=== PATIENT | male | born 1960 | race Caucasian/White ===

== ENCOUNTER 2017-12-28 12:18 | Emergency (ER) | payer OTHER ==
[~2017-12-28] VITALS: Ht 195.6 cm; Wt 140.0 kg
[2017-12-28 12:20] VITALS: BP 125/78; PULSE 96; RESP 16; TEMP 98.9; O2SAT 99
[2017-12-28] MEDS ORDERED: TRAZ100T10 PO (13:40)
[2017-12-28] MEDS ORDERED: DILT30TA PO (13:40)
[2017-12-28] MEDS ORDERED: CITA20TA4 PO (13:40)
[2017-12-28] MEDS ORDERED: MULT-65 PO (13:40)
[2017-12-28] MEDS ORDERED: VITA1000 PO (13:40)
[2017-12-28] MEDS ORDERED: LURA80 PO (13:40)
[2017-12-28 15:33] LABS: AUTOMATED NEUTROPHIL # 2.6 TH/MM3 (1.8-7.7); BASOPHIL # 0.1 TH/MM3 (0-0.2); BASOPHIL % 1.9 % (0.0-2.0); EOSINOPHIL # 0.2 TH/MM3 (0-0.4); EOSINOPHIL % 3.6 % (0.0-4.0); HEMATOCRIT 40.7 % (39.0-51.0); HEMOGLOBIN 13.8 GM/DL (13.0-17.0); LYMPH % 36.3 % (9.0-44.0); LYMPHOCYTE # 1.9 TH/MM3 (1.0-4.8); MEAN CELL VOLUME 92.4 FL (80.0-100.0); MEAN CORPUSCULAR HEMOGLOBIN 31.3 PG (27.0-34.0); MEAN CORPUSCULAR HGB CONC 33.9 % (32.0-36.0); MEAN PLATELET VOLUME 7.2 FL (7.0-11.0); MONOCYTE # 0.5 TH/MM3 (0-0.9); NEUT % 49.2 % (16.0-70.0); PLATELET COUNT 262 TH/MM3 (150-450); RED BLOOD COUNT 4.41 MIL/MM3 (4.50-5.90); WHITE BLOOD COUNT 5.2 TH/MM3 (4.0-11.0)
[2017-12-28 15:56] LABS: BICARBONATE 29.5 MEQ/L (21.0-32.0); BLOOD UREA NITROGEN 16 MG/DL (7-18); CALCIUM 8.5 MG/DL (8.5-10.1); CHLORIDE 108 MEQ/L (98-107); CREATININE 1.47 MG/DL (0.60-1.30); GLOMERULAR FILTRATION RATE 49 ML/MIN (>89); GLUCOSE,RANDOM 108 MG/DL (74-106); SODIUM (NA) 143 MEQ/L (136-145)
--- NOTE | 2017-12-28 16:21 | PD ---
HPI Chief Complaint: Suicide Ideation/Attempt Time Seen by Provider: 16:20 Travel History International Travel<30 days: No Contact w/Intl Traveler<30days: No Traveled to known affect area: No History of Present Illness HPI 57-year-old male presents emergency department for psychiatric evaluation. Patient states he has been off of his schizophrenic medication for at least 2 months. During that time he did have a short hospitalization and an inpatient psych facility. This was out of town. He was medicated during that time but then once he left he was not provided any prescriptions.. He is having auditory hallucinations. He states that he is having suicidal thoughts as well. He denies any illicit drug use. Denies any acute medical needs at this time. PFSH Past Medical History Schizophrenia: Yes Social History Tobacco Use: No Substance Use: No Allergies-Medications (Allergen,Severity, Reaction): Coded Allergies: lactose (Verified Allergy, Unknown, 12/28/17) Reported Meds & Prescriptions Reported Meds & Active Scripts Active Reported Vitamin D-1000 (Cholecalciferol) 1,000 Unit Tab 1,000 Units PO DAILY Multi-Vitamin Daily (Multiple Vitamin) 1 Tab Tab 1 Tab PO DAILY Diltiazem (Diltiazem HCl) 30 Mg Tab 30 Mg PO QID Citalopram (Citalopram Hydrobromide) 20 Mg Tab 20 Mg PO DAILY Trazodone (Trazodone HCl) 100 Mg Tablet 100 Mg PO HS Latuda (Lurasidone) 80 Mg Tab 80 Mg PO DAILY Review of Systems Except as stated in HPI: all other systems reviewed are Neg Physical Exam Narrative GENERAL: Well-nourished male patient, lying in bed in no acute distress. SKIN: Focused skin assessment warm/dry. HEAD: Atraumatic. Normocephalic. EYES: Pupils equal and round. No scleral icterus. No injection or drainage. ENT: No nasal bleeding or discharge. Mucous membranes pink and moist. NECK: Trachea midline. No JVD. CARDIOVASCULAR: Regular rate and rhythm. No murmur appreciated. RESPIRATORY: No accessory muscle use. Clear to auscultation. Breath sounds equal bilaterally. GASTROINTESTINAL: Abdomen soft, non-tender, nondistended. Hepatic and splenic margins not palpable. MUSCULOSKELETAL: No obvious deformities. No clubbing. No cyanosis. No edema. NEUROLOGICAL: Awake and alert. No obvious cranial nerve deficits. Motor grossly within normal limits. Normal speech. PSYCHIATRIC: Bizarre affect Data Data Last Documented VS Vital Signs Date Time Temp Pulse Resp B/P (MAP) Pulse Ox O2 Delivery O2 Flow Rate FiO2 12/28/17 18:08 74 18 116/62 (80) 99 Room Air 12/28/17 12:20 98.9 Orders Orders Complete Blood Count With Diff (12/28/17 12:30) Thyroid Stimulating Hormone (12/28/17 12:30) Basic Metabolic Panel (Bmp) (12/28/17 12:30) Psych Screen (12/28/17 12:30) Drug Screen, Random Urine (12/28/17 12:30) Alcohol (Ethanol) (12/28/17 12:30) Diet Regular Basic (12/28/17 Dinner) Labs Laboratory Tests Test 12/28/17 15:15 White Blood Count 5.2 TH/MM3 Red Blood Count 4.41 MIL/MM3 Hemoglobin 13.8 GM/DL Hematocrit 40.7 % Mean Corpuscular Volume 92.4 FL Mean Corpuscular Hemoglobin 31.3 PG Mean Corpuscular Hemoglobin Concent 33.9 % Red Cell Distribution Width 14.0 % Platelet Count 262 TH/MM3 Mean Platelet Volume 7.2 FL Neutrophils (%) (Auto) 49.2 % Lymphocytes (%) (Auto) 36.3 % Monocytes (%) (Auto) 9.0 % Eosinophils (%) (Auto) 3.6 % Basophils (%) (Auto) 1.9 % Neutrophils # (Auto) 2.6 TH/MM3 Lymphocytes # (Auto) 1.9 TH/MM3 Monocytes # (Auto) 0.5 TH/MM3 Eosinophils # (Auto) 0.2 TH/MM3 Basophils # (Auto) 0.1 TH/MM3 CBC Comment DIFF FINAL Differential Comment Blood Urea Nitrogen 16 MG/DL Creatinine 1.47 MG/DL Random Glucose 108 MG/DL Calcium Level 8.5 MG/DL Sodium Level 143 MEQ/L Potassium Level 4.2 MEQ/L Chloride Level 108 MEQ/L Carbon Dioxide Level 29.5 MEQ/L Anion Gap 6 MEQ/L Estimat Glomerular Filtration Rate 49 ML/MIN Thyroid Stimulating Hormone 3rd Gen 0.576 uIU/ML Ethyl Alcohol Level LESS THAN 3 MG/DL MDM Medical Decision Making Medical Screen Exam Complete: Yes Emergency Medical Condition: Yes Medical Record Reviewed: Yes Differential Diagnosis Mood disorder versus personality disorder versus adjustment reaction disorder Narrative Course 57-year-old male presents emergency department for psychiatric evaluation. Patient appears without distress. His vital signs are stable. He reports having auditory hallucinations and suicidal ideations. Laboratory Tests Test 12/28/17 15:15 White Blood Count 5.2 TH/MM3 Red Blood Count 4.41 MIL/MM3 Hemoglobin 13.8 GM/DL Hematocrit 40.7 % Mean Corpuscular Volume 92.4 FL Mean Corpuscular Hemoglobin 31.3 PG Mean Corpuscular Hemoglobin Concent 33.9 % Red Cell Distribution Width 14.0 % Platelet Count 262 TH/MM3 Mean Platelet Volume 7.2 FL Neutrophils (%) (Auto) 49.2 % Lymphocytes (%) (Auto) 36.3 % Monocytes (%) (Auto) 9.0 % Eosinophils (%) (Auto) 3.6 % Basophils (%) (Auto) 1.9 % Neutrophils # (Auto) 2.6 TH/MM3 Lymphocytes # (Auto) 1.9 TH/MM3 Monocytes # (Auto) 0.5 TH/MM3 Eosinophils # (Auto) 0.2 TH/MM3 Basophils # (Auto) 0.1 TH/MM3 CBC Comment DIFF FINAL Differential Comment Blood Urea Nitrogen 16 MG/DL Creatinine 1.47 MG/DL Random Glucose 108 MG/DL Calcium Level 8.5 MG/DL Sodium Level 143 MEQ/L Potassium Level 4.2 MEQ/L Chloride Level 108 MEQ/L Carbon Dioxide Level 29.5 MEQ/L Anion Gap 6 MEQ/L Estimat Glomerular Filtration Rate 49 ML/MIN Thyroid Stimulating Hormone 3rd Gen 0.576 uIU/ML Ethyl Alcohol Level LESS THAN 3 MG/DL Lab work is without acute concern. Patient is medically cleared to undergo psychiatric screening for further evaluation and disposition. Diagnosis Primary Impression: Schizophrenia Condition: Stable MunizMyra herbert DESMOND December 28, 2017 16:21
[2017-12-28 18:08] VITALS: BP 116/62; PULSE 74; RESP 18; O2SAT 99
[2017-12-29 01:00] VITALS: BP 129/77; PULSE 76; RESP 18; TEMP 97.7; O2SAT 96
[2017-12-29 06:52] VITALS: BP 138/72; PULSE 79; RESP 20; TEMP 97.2; O2SAT 99
--- NOTE | 2017-12-29 08:10 | PD ---
Physical Exam Time Seen by Provider: 08:[address] Galicia has evaluated the patient and cleared the patient for discharge. The patient has a follow-up appointment with her psychiatrist tomorrow. Data Data Last Documented VS Vital Signs Date Time Temp Pulse Resp B/P (MAP) Pulse Ox O2 Delivery O2 Flow Rate FiO2 12/29/17 06:52 97.2 79 20 138/72 (94) 99 Room Air Orders Orders Complete Blood Count With Diff (12/28/17 12:30) Thyroid Stimulating Hormone (12/28/17 12:30) Basic Metabolic Panel (Bmp) (12/28/17 12:30) Psych Screen (12/28/17 12:30) Drug Screen, Random Urine (12/28/17 12:30) Alcohol (Ethanol) (12/28/17 12:30) Diet Regular Basic (12/28/17 Dinner) Diet Regular Basic (12/29/17 Breakfast) Labs Laboratory Tests Test 12/28/17 15:15 12/29/17 00:43 White Blood Count 5.2 TH/MM3 Red Blood Count 4.41 MIL/MM3 Hemoglobin 13.8 GM/DL Hematocrit 40.7 % Mean Corpuscular Volume 92.4 FL Mean Corpuscular Hemoglobin 31.3 PG Mean Corpuscular Hemoglobin Concent 33.9 % Red Cell Distribution Width 14.0 % Platelet Count 262 TH/MM3 Mean Platelet Volume 7.2 FL Neutrophils (%) (Auto) 49.2 % Lymphocytes (%) (Auto) 36.3 % Monocytes (%) (Auto) 9.0 % Eosinophils (%) (Auto) 3.6 % Basophils (%) (Auto) 1.9 % Neutrophils # (Auto) 2.6 TH/MM3 Lymphocytes # (Auto) 1.9 TH/MM3 Monocytes # (Auto) 0.5 TH/MM3 Eosinophils # (Auto) 0.2 TH/MM3 Basophils # (Auto) 0.1 TH/MM3 CBC Comment DIFF FINAL Differential Comment Blood Urea Nitrogen 16 MG/DL Creatinine 1.47 MG/DL Random Glucose 108 MG/DL Calcium Level 8.5 MG/DL Sodium Level 143 MEQ/L Potassium Level 4.2 MEQ/L Chloride Level 108 MEQ/L Carbon Dioxide Level 29.5 MEQ/L Anion Gap 6 MEQ/L Estimat Glomerular Filtration Rate 49 ML/MIN Thyroid Stimulating Hormone 3rd Gen 0.576 uIU/ML Ethyl Alcohol Level LESS THAN 3 MG/DL Urine Opiates Screen NEG Urine Barbiturates Screen NEG Urine Amphetamines Screen NEG Urine Benzodiazepines Screen NEG Urine Cocaine Screen NEG Urine Cannabinoids Screen NEG MDM Supervised Visit with [facility]MA: No Narrative Course Dr. Galicia has evaluated the patient and cleared the patient for discharge. The patient has a follow-up appointment with her psychiatrist tomorrow. Patient contracts safety. Denies suicidal or homicidal ideations. Patient will be provided community resource packet to [facility] for follow-up. Has friends and family for support. Patient was medically cleared by alternate provider prior to psych screening. Patient has been evaluated by psychiatry and and is now cleared for discharge. Diagnosis Primary Impression: Schizophrenia Additional Impression: Adjustment disorder Referrals: [facility] (Out patient) [facility] Primary Care Physician Psychiatrist Gerald [facility] Patient Instructions: General Instructions, Mood Disorders (ED), Schizophrenia (ED) Additional Instruction: Contract safety to your self and others Follow-up with psychiatry Follow-up with primary care provider Follow-up with Anthony Wang Return to the emergency department immediately with worsening of symptoms Med/Other Pt SpecificInfo: No Change to Meds, No Meds Exist/No RX given Disposition: 01 DISCHARGE HOME Condition: Stable Amara Mcadams December 29, 2017 08:10
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
== END 2017-12-29 09:18 | disposition home or self-care (01) ==
LOC: NEPJ 12:18
DX: F20.9 Schizophrenia, unspecified (principal); F43.20 Adjustment disorder, unspecified; F43.10 Post-traumatic stress disorder, unspecified; Z79.899 Other long term (current) drug therapy; Z59.0 Homelessness
CPT/HCPCS: 80048; 80307; 84443; 85025; 99284

== ENCOUNTER 2018-01-31 02:58 | Emergency (ER) | payer OTHER ==
[~2018-01-31] VITALS: Ht 180.3 cm; Wt 104.5 kg
[~2018-01-31 02:58] MED LIST: CITA20TA4 PO; DILT30TA PO; LURA80 PO; MULT-65 PO; TRAZ100T10 PO; VITA1000 PO
--- NOTE | 2018-01-31 03:59 | PD ---
HPI . abdominal pain Chief Complaint: Abdominal Pain Time Seen by Provider: 03:08 Travel History International Travel<30 days: No Contact w/Intl Traveler<30days: No Traveled to known affect area: No History of Present Illness HPI pt is having abdo pain , pt was shopping at [employer] after paying for his groceries called 911 saying he is having severe abdo pain , no vomit no diarrhea no trauma PFSH Past Medical History Schizophrenia: Yes Social History Alcohol Use: No Tobacco Use: No Substance Use: No Allergies-Medications (Allergen,Severity, Reaction): Coded Allergies: Penicillins (Verified Allergy, Unknown, 01/31/18) lactose (Verified Allergy, Unknown, 01/31/18) lithium (Verified Allergy, Unknown, 01/31/18) Reported Meds & Prescriptions Reported Meds & Active Scripts Active Pepcid (Famotidine) 20 Mg Tab 20 Mg PO BID Reported Vitamin D-1000 (Cholecalciferol) 1,000 Unit Tab 1,000 Units PO DAILY Multi-Vitamin Daily (Multiple Vitamin) 1 Tab Tab 1 Tab PO DAILY Diltiazem (Diltiazem HCl) 30 Mg Tab 30 Mg PO QID Citalopram (Citalopram Hydrobromide) 20 Mg Tab 20 Mg PO DAILY Trazodone (Trazodone HCl) 100 Mg Tablet 100 Mg PO HS Latuda (Lurasidone) 80 Mg Tab 80 Mg PO DAILY Review of Systems Except as stated in HPI: all other systems reviewed are Neg Gastrointestinal: Positive: Abdominal Pain Physical Exam Narrative GENERAL:obese abdomen no acute distress SKIN: Warm and dry. HEAD: Atraumatic. Normocephalic. EYES: Pupils equal and round. No scleral icterus. No injection or drainage. ENT: No nasal bleeding or discharge. Mucous membranes pink and moist. NECK: Trachea midline. No JVD. CARDIOVASCULAR: Regular rate and rhythm. RESPIRATORY: No accessory muscle use. Clear to auscultation. Breath sounds equal bilaterally. GASTROINTESTINAL: Abdomen pain epigastric MUSCULOSKELETAL: Extremities without clubbing, cyanosis, or edema. No obvious deformities. NEUROLOGICAL: Awake and alert. No obvious cranial nerve deficits. Motor grossly within normal limits. Five out of 5 muscle strength in the arms and legs. Normal speech. PSYCHIATRIC: Appropriate mood and affect; insight and judgment normal. Data Data Orders Orders Abdomen, Flat & Upright (01/31/18 ) Ed Discharge Order (01/31/18 06:26) MDM Medical Decision Making Medical Screen Exam Complete: Yes Emergency Medical Condition: Yes Diagnosis Primary Impression: Abdominal pain Qualified Codes: R10.9 - Unspecified abdominal pain Patient Instructions: Gastritis (ED), General Instructions Scripts Famotidine (Pepcid) 20 Mg Tab 20 MG PO BID, #20 TAB 0 Refills Prov: Chas Holt MD 01/31/18 Disposition: 01 DISCHARGE HOME Condition: Good Chas Holt MD Jan 31, 2018 03:59
--- NOTE | 2018-01-31 04:19 | RADRPT ---
EXAM DATE: 01/31/2018 4:09 AM EDT AGE/SEX: 57 years / Male INDICATIONS: Upper abdominal pain. CLINICAL DATA: This is the patient's initial encounter. Patient reports that signs and symptoms have been present for 1 day and indicates a pain score of 6/10. MEDICAL/SURGICAL HISTORY: None. None. COMPARISON: No prior exams available for comparison. FINDINGS: 2 AP supine views of the abdomen were obtained as well as an erect view and demonstrate gas and stool noted segmentally in the colon. There is no free air or mass effect. There are no abnormal calcifica tions. The lung bases are clear. The bony structures remain intact. CONCLUSION: Unremarkable bowel gas pattern with no evidence of free air. Electronically signed by: Howie Carbajal MD 01/31/2018 4:18 AM EDT
[2018-01-31] MEDS ORDERED: FAMO1TAB37 PO (06:20)
== END 2018-01-31 06:32 | disposition home or self-care (01) ==
LOC: NEPE 02:58
DX: R10.9 Unspecified abdominal pain (principal); F20.9 Schizophrenia, unspecified; Z88.0 Allergy status to penicillin; Z88.8 Allergy status to other drugs, medicaments and biological substances; Z79.899 Other long term (current) drug therapy
CPT/HCPCS: 74019; 99283

== ENCOUNTER 2018-02-04 10:06 | Emergency (ER) | payer OTHER ==
[~2018-02-04] VITALS: Ht 200.7 cm; Wt 140.0 kg
[~2018-02-04 10:06] MED LIST changes: +FAMO1TAB37 PO
[2018-02-04 10:22] VITALS: BP 135/77; PULSE 84; RESP 15; TEMP 98.2; O2SAT 98
--- NOTE | 2018-02-04 11:57 | PD ---
HPI Chief Complaint: Suicide Ideation/Attempt Time Seen by Provider: 10:46 Travel History International Travel<30 days: No Contact w/Intl Traveler<30days: No Traveled to known affect area: No History of Present Illness HPI 57 YO M with PMH of schizophrenia, PTSD presents to the ED for voluntary psychiatric evaluation. Patient states she has been feeling suicidal for the last few days. He thought he might take some pills. Endorses previous psychiatric hospitalization secondary to previous suicide attempt. He has some chronic complaints of GERD and low back pain, no acute exacerbations reported now. Denies any other somatic complaints. PFSH Past Medical History Cardiovascular Problems: Yes Respiratory: Yes Schizophrenia: Yes ?: Not Social History Alcohol Use: No Tobacco Use: No Substance Use: No Allergies-Medications (Allergen,Severity, Reaction): Coded Allergies: Penicillins (Verified Allergy, Unknown, 01/31/18) lactose (Verified Allergy, Unknown, 01/31/18) lithium (Verified Allergy, Unknown, 01/31/18) Reported Meds & Prescriptions Reported Meds & Active Scripts Active Pepcid (Famotidine) 20 Mg Tab 20 Mg PO BID Reported Vitamin D-1000 (Cholecalciferol) 1,000 Unit Tab 1,000 Units PO DAILY Multi-Vitamin Daily (Multiple Vitamin) 1 Tab Tab 1 Tab PO DAILY Diltiazem (Diltiazem HCl) 30 Mg Tab 30 Mg PO QID Citalopram (Citalopram Hydrobromide) 20 Mg Tab 20 Mg PO DAILY Trazodone (Trazodone HCl) 100 Mg Tablet 100 Mg PO HS Latuda (Lurasidone) 80 Mg Tab 80 Mg PO DAILY Review of Systems Except as stated in HPI: all other systems reviewed are Neg Physical Exam Narrative GENERAL: Well-nourished, well-developed -[place] male in no acute distress. PSYCH: Calm, cooperative. SKIN: Focused skin assessment warm/dry. HEAD: Normocephalic. EYES: No scleral icterus. No injection or drainage. NECK: Supple, trachea midline. No JVD or lymphadenopathy. CARDIOVASCULAR: Regular rate and rhythm without murmurs, gallops, or rubs. RESPIRATORY: Breath sounds clear and equal bilaterally. No accessory muscle use. GASTROINTESTINAL: Abdomen soft, non-tender, nondistended. MUSCULOSKELETAL: No cyanosis, or edema. BACK: Nontender without obvious deformity. No CVA tenderness. Data Data Last Documented VS Vital Signs Date Time Temp Pulse Resp B/P (MAP) Pulse Ox O2 Delivery O2 Flow Rate FiO2 02/04/18 10:22 98.2 84 15 135/77 (96) 98 Orders Orders Diet Regular Basic (02/04/18 Lunch) MDM Medical Decision Making Medical Screen Exam Complete: Yes Emergency Medical Condition: Yes Differential Diagnosis Adjustment disorder versus anxiety versus bipolar versus depression versus dementia versus electrolyte disorder versus malingering versus mood disorder versus ODD versus psychosis versus PTSD versus schizophrenia versus schizoaffective disorder versus substance-induced mood disorder versus other Narrative Course 37-year-old male presents the ED requesting voluntary psychiatric evaluation. He has a history of PTSD and schizophrenia. He states that he thought he might take some pills. Chronic complaints of back pain and GERD, no acute somatic complaints reported. Vitals reviewed. Patient was evaluated in the ED a few days ago, no concerning lab abnormalities noted. He is medically clear for psychiatric evaluation. Diagnosis Primary Impression: Medical clearance for psychiatric admission Mary Correa Feb 04, 2018 11:57
[2018-02-04 14:34] VITALS: BP 128/73; PULSE 79; RESP 16; TEMP 98.6; O2SAT 99
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
== END 2018-02-04 17:29 | disposition left against medical advice (07) ==
LOC: NEPJ 10:06
DX: F43.20 Adjustment disorder, unspecified (principal); Z76.5 Malingerer [conscious simulation]; F20.0 Paranoid schizophrenia; F43.10 Post-traumatic stress disorder, unspecified; Z88.0 Allergy status to penicillin; Z88.8 Allergy status to other drugs, medicaments and biological substances; Z79.899 Other long term (current) drug therapy
CPT/HCPCS: 99283

== ENCOUNTER 2018-05-29 17:24 | Inpatient (IN) ==
[2018-05-29 19:34] LABS: Baso % (Auto) 0.5 % (0.0-2.0); Eos % (Auto) 0.9 % (0.0-4.0); Hematocrit 38.2 % (39.0-51.0); Hemoglobin 13.1 gm/dL (13.0-17.0); Lymph # (Auto) 1.4 th/mm3 (1.0-4.8); Lymph % (Auto) 26.2 % (9.0-44.0); Mean Corpuscular HGB Conc 34.4 % (32.0-36.0); Mean Corpuscular Hemoglobin 31.1 pg (27.0-34.0); Mean Corpuscular Volume 90.6 fL (80.0-100.0); Mean Platelet Volume 7.7 fL (7.0-11.0); Mono # (Auto) 0.4 th/mm3 (0.0-0.9); Neut # (Auto) 3.4 th/mm3 (1.8-7.7); Neut % (Auto) 64.4 % (16.0-70.0); Platelet Count 323 th/mm3 (150-450); Red Blood Count 4.21 mil/mm3 (4.50-5.90); Red Cell Distribution Width 14.5 % (11.6-17.2); White Blood Count 5.2 th/mm3 (4.0-11.0)
[2018-05-29 20:00] LABS: Albumin 3.7 g/dL (3.4-5.0); Anion Gap 7 meq/L (5-15); Aspartate Aminotransferase 32 U/L (15-37); Blood Urea Nitrogen 16 mg/dL (7-18); Calcium 8.7 mg/dL (8.5-10.1); Carbon Dioxide 25.2 meq/L (21.0-32.0); Chloride 107 meq/L (98-107); Glomerular Filtration Rate 58 mL/min (>89); Glucose,Random 86 mg/dL (74-106); Magnesium 2.3 mg/dL (1.5-2.5); Potassium 3.9 meq/L (3.5-5.1); Sodium 139 meq/L (136-145)
[2018-05-29 20:02] LABS: Alanine Aminotransferase 41 U/L (12-78)
[2018-05-29 20:11] LABS: Alkaline Phosphatase 88 U/L (45-117); Total Protein 7.7 g/dL (6.4-8.2)
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
[2018-05-30 04:34] LABS: Amphetamine Screen,Urine Neg (Neg); Barbiturate Screen,Urine Neg (Neg); Cannabinoid Screen,Urine Neg (Neg); Cocaine Screen,Urine Pos (Neg); Opiate Screen,Urine Neg (Neg)
[2018-05-30] MEDS ORDERED: Aluminum/Magnesium/Simethacone Susp 30 ML UDC PO PRN (08:42)
[2018-05-30] MEDS ORDERED: Bisacodyl 10 MG Supp RECTAL PRN (08:42)
[2018-05-30] MEDS: Senna/Docusate Sodium 8.6/50 MG Tablet PO SCH ×2 (09:49→21:36)
--- NOTE | 2018-05-30 15:27 | P.HPPSY ---
Provisional Diagnosis Admission Date: May 30, 2018 09:38 [place] I.: Adjustment disorder with disturbance of conduct, PTSD, MDD Competence Certification of Person's Competence To Provide Express and Informed Consent I have personally examined Baltazar Oliveira, a person being served at [facility] on, May 30, 2018 1518. Express and informed consent means consent voluntarily given in writing, by a competent person, after sufficient explanation and disclosure of the subject matter involved to enable the person to make a knowing and willful decision without any element of force, fraud, deceit, duress, or other form of constraint or coercion. This person is 18 years of age or older, is not now known to be incompetent to consent to treatment with a guardian advocate, and does not have a health care surrogate or proxy currently making medical treatment decisions. I have found this person to be one of the following: [] Competent to provide express and informed consent, as defined above, for voluntary admission to this facility and is competent to provide express and informed consent for treatment. He/she has the consistent capacity to make well reasoned, willful, and knowing decisions concerning his or her medical or mental health treatment. The person fully and consistently understands the purpose of the admission for examination/placement and is fully capable of personally exercising all rights assured under [place] [] Incompetent to provide express and informed consent to voluntary admission, and this is incompetent to provide express and informed consent to treatment. The person must be transferred to involuntary status and a petition for a guardian advocate filed with the Circuit Court. [x] Refusing to provide express and informed consent to voluntary admission but is competent to provide express and informed consent for treatment. The person must be discharged or transferred to involuntary status. Form shall be completed within 24 hours of a person's arrival at the receiving facility and filed in the clinical record of each person: 1. Admitted on a voluntary basis 2. Permitted to provide express and informed consent to his/her own treatment 3. Allowed to transfer from involuntary to voluntary status 4. Prior to permitting a person to consent to his or her own treatment after having been previously found incompetent to consent to treatment. History of Present Illness Capacity: Has capacity History of Present Illness: The patient is a 57-year-old -Citizen Of [place] man, domiciled in [facility] [place] [facility] [place], , single, unemployed, , 100% service-connected, with a psychiatric history of PTSD, major depressive disorder, previous psychiatric hospitalizations, he is known by the department, he has several ER visits to [place], documentation review, psychiatric outpatient care in the [place], he is on Latuda 80 mg, trazodone 100 mg, Celexa 20 mg, Valium 10 mg at bedtime medical history hypertension, TBI, presents emergency department under Huang act by PD. Patient states that he initially had tried to call the ambulance to take him to the [place]. He states that he was feeling increasingly depressed and anxious regarding his roommates taking advantage of him those are people that were just released from halfway. He also says that he does not feel that he is getting the need that he deserves, because I am the black person. Patient reports that he does not want to continue living in [place], he wants to go back to [place]. He reports that he has been feeling hopeless, helpless, worthless, difficulty sleeping at night, very concerned and with anxiety Attacks per he states that he has contemplated suicide but has no current plan. He also states that he has been suffering from chronic right knee pain. He has been seen at the [place] multiple times and has had an x-ray as well as an ultrasound of his right leg. He is currently taking ibuprofen for his pain. According to the Huang act the patient had refused transport by PD initially before he was placed under a Huang act. The patient stated that he only wanted to come by ambulance. When the patient was here in the ER he was seen by the psych nurse practitioner who initiated restraints and medicated him with Geodon 10 mg and Ativan 1 mg the patient here this evening denies any active plan on self-harm. No homicidal ideation. The patient is fully oriented x3, no attention deficit, no fluctuation of consciousness. On the ER the patient has been very disruptive, oddly related, intrusive, asking the same questions over and over. Patient has a very kind of concrete thinking and at times made the questions over and over. He also has showed he does not respond very well to white female become quite paranoid. PPHx: psychiatric history of PTSD, major depressive disorder, previous psychiatric hospitalizations, he is known by the department, he has several ER visits to [place], documentation review, psychiatric outpatient care in the [place], he is on Latuda 80 mg, trazodone 100 mg, Celexa 20 mg, Valium 10 mg at bedtime PMHx: history hypertension, TBI Substance Hx: He denies alcohol and illegal Social Hx: Patient was born and raised in [place], he lives in [facility] in [facility], his highest level of education is a bachelor degree - Inpatient Certification I certify that the inpatient services were ordered in accordance with Medicare regulations governing the order. This includes certification that hospital inpatient services are reasonable and necessary and in the case of services not specified as inpatient-only under 42 CFR 419.22(n), that they are appropriately provided as inpatient services in accordance to with the 2-midnight benchmark under 43 CFR 412.3(e) I certify that inpatient psychiatric hospital services are medically necessary. Evaluation and treatment and/or diagnostic testing are expected to improve the patient's condition. The patient needs on a daily basis, active treatment furnished directly by or requiring the supervision of inpatient psychiatric facility personnel. Estimated Total Length of Stay (Days): 7 Plans for Post Hospital Care: Home [facility] - History History Provided By: Patient - Medical History Medical History: Medical History (Last Reviewed 05/29/18 @ 20:12 by ADRIAN Myers) Diabetes Right bundle branch block TBI (traumatic brain injury) - Surgical History Surgical History: Surgical History (Last Reviewed 05/29/18 @ 20:12 by ADRIAN Myers) History of surgery of head - Tobacco History Second Hand Smoke Exposure: Yes Tobacco Use In Past 30 Days: Yes (2PPD) Smoking Status: Current every day smoker Tobacco Type: Cigarettes - Alcohol History How Often Do You Have a Drink Containing Alcohol: 4 or more times a week - Substance Use History Substance History: No History of Abuse - Travel History Recent Travel in the USA Within the Last 8 Weeks: No Recent Travel Out of the Country Within the Last 8 Weeks: No - Immunization History Tetanus Immunization: Unsure Medications and Allergies Active Medications: Active Medications Al Hydrox/Mg Hydrox/Simethicone (Mag-Al Plus Susp Liq) 30 ml PO Q6H PRN PRN Reason: DYSPEPSIA Al Hydroxide/Mg Hydroxide (Milk Of Magnesia Liq) 30 ml PO Q12H PRN PRN Reason: Mild Constipation Bisacodyl (Dulcolax Supp) 10 mg RECTAL DAILY PRN PRN Reason: SEVERE CONSITIPATION Lactulose (Lactulose Liq) 30 ml PO DAILY PRN PRN Reason: SEVERE CONSITIPATION Lurasidone HCl (Latuda) 40 mg PO DAILY [facility] Last Admin: 05/30/18 09:49 Dose: 40 mg Prazosin HCl (Minipress) 2 mg PO HS [facility] Senna/Docusate Sodium (Sandy-Colace) 1 tab PO BID [facility] Last Admin: 05/30/18 09:49 Dose: 1 tab Sennosides (Senokot) 17.2 mg PO Q12H PRN PRN Reason: Moderate Constipation Trazodone HCl (Desyrel) 100 mg PO HS [facility] Allergies Allergy/AdvReac Type Severity Reaction Status Date / Time amitriptyline Allergy Unknown Hallucinati Verified 05/29/18 17:41 ons haloperidol [From Haldol] Allergy Unknown Dry Mucus Verified 05/29/18 17:41 Membranes lactose Allergy Unknown Diarrhea Verified 05/29/18 17:41 lithium Allergy Unknown Diarrhea Verified 05/29/18 17:41 Penicillins Allergy Unknown Swelling Verified 05/29/18 17:41 of the Eye quetiapine [From Seroquel] Allergy Unknown Hallucinati Verified 05/29/18 17:41 ons Home Medications Medication Instructions Recorded Confirmed Type hydroxyzine pamoate [Vistaril] 25 mg PO HS PRN 05/29/18 05/29/18 History prazosin 2 mg PO HS 05/29/18 05/29/18 History trazodone 100 mg PO HS 05/29/18 05/29/18 History Results - Labs CBC & Chem 7: 05/29/18 17:48 05/29/18 17:48 Labs: Laboratory Results - last 24 hr 05/29/18 05/29/18 05/30/18 17:48 17:48 04:15 WBC 5.2 RBC 4.21 L Hgb 13.1 Hct 38.2 L MCV 90.6 MCH 31.1 MCHC 34.4 RDW 14.5 Plt Count 323 MPV 7.7 Neut % (Auto) 64.4 Lymph % (Auto) 26.2 [place] % (Auto) 8.0 Eos % (Auto) 0.9 Baso % (Auto) 0.5 Neut # (Auto) 3.4 Lymph # (Auto) 1.4 [place] # (Auto) 0.4 Eos # (Auto) 0.0 Baso # (Auto) 0.0 WBC Differential . Differential Comment Auto diff final Sodium 139 Potassium 3.9 Chloride 107 Carbon Dioxide 25.2 Anion Gap 7 BUN 16 Creatinine 1.27 Estimated GFR 58 L Random Glucose 86 Calcium 8.7 Magnesium 2.3 Total Bilirubin 0.4 AST 32 ALT 41 Alkaline Phosphatase 88 Total Protein 7.7 Albumin 3.7 TSH 1.020 Urine Opiates Screen Neg Ur Barbiturates Screen Neg Ur Amphetamines Screen Neg U Benzodiazepines Scrn Neg Urine Cocaine Screen Pos H U Cannabinoids Screen Neg Serum Alcohol Less than 3 Exam Vital signs: Vital Signs 05/29/18 19:53 05/29/18 22:30 05/30/18 04:32 Temperature 98.1 F 98.6 F 98.4 F Pulse Rate 98 H 77 79 Respiratory Rate 18 Blood Pressure 131/82 138/79 136/80 Pulse Oximetry 98 98 99 Intake & Output 05/29/18 05/30/18 05/30/18 18:59 06:59 18:59 Weight 136.985 kg Narrative: No tremors, no EPS, no psychomotor agitation or agitation, no withdrawal symptoms, no catatonia - Constitutional mild distress - Routine HEENT Exam Head: Present: normocephalic, atraumatic ENT: Present: mucous membranes moist Mental Status Examination Appearance: Appropriate Consciousness: Alert Orientation: x4 Motor Activity: Normal gait Speech: Unremarkable Language: Adequate Fund of Knowledge: Adequate Attention and Concentration: Adequate Memory: Unremarkable Mood: Sad, Oppositional Affect: Irritable Thought Process & Associations: Intact Thought Content: Appropriate Hallucination Type: None Delusion Type: None Suicidal Ideation: Yes Suicidal Plan: No Suicidal Intention: No Homicidal Ideation: No Homicidal Plan: No Homicidal Intention: No Insight: Poor Judgment: Poor Assessment and Plan - Assessment (1) Acute adjustment disorder with disturbance of conduct Code(s): F43.24 - Adjustment disorder with disturbance of conduct Status: Acute - Plan Plan: On psychiatric evaluation today the patient is quite disruptive, oddly related, expressing suicidal ideation, he has being also very aggressive needing ETO medication to calm down. There is a patient with a psychiatric history of PTSD , depression, TBI, a very concrete panel thinking suspicious of intellectual disability, who at this moment has an elevated risk of danger to himself and needs psychiatric admission for stabilization. I will restart his Latuda 80 mg , trazodone 100 mg, Valium 10 mg at bedtime, Celexa 10 mg. Patient will be transferred to 2700 unit. Collateral information is important to complete the psychiatric assessment. Will consult psychiatry for second opinion. Justification for Continued Inpatient Stay: Continue psychiatric admission
--- NOTE | 2018-05-30 15:37 | P.DIET ---
Nutritional Evaluation Type of nutrition evaluation: initial Nutrition consult regarding: Diet Evaluation Screening comments: RN Tiffany reports pt is requesting more food. Subjective Subjective Comments: Spoke w/pt in the Unit and he says he is not getting enough to eat. Objective - Diagnosis PTSD - Objective [place] body weight: 94.5 kg % IBW: 145 Body Weight Used for Calculations: IBW (94.5kg) Energy Needs - Lower Range (kCal/kg): 22 Energy Needs - Upper Range (kCal/kg): 27 Lower Limit kCal/kg (kCals): 2,080 Upper Limit kCal/kg (kCals): 2,552 Lower Limit Protein Factor (Grams per Kg): 1.1 Upper Limit Protein Factor (Grams per Kg): 1.3 Lower Protein Needs (Protein): 104 Upper Protein Needs (Protein): 123 Dietitian Reviewed in Medical Record: Current diet, Curent medications, Intake & Output, Labs, Medical history Diet Order: 1800ADA Objective Comments: PMH : DM, Right bundle branch block, TBI Glucose 86 Assessment Assessment: Pt is a Nursing request r/t pt is requesting more food and is currently on an 1800ADA diet. To best meet pt's assessed needs and to provide adequate nutrients, Rec diet as a 2200ADA diet. Plan to send double protein for this pt. Dietitian to follow as needed. Recommendations: 1. Rec diet as a 2200ADA diet 2. Plan to send double protein 3. Dietitian to follow as needed
[2018-05-30] MEDS: traZODone 100 MG Tablet PO SCH (21:37)
[2018-05-31] MEDS: Senna/Docusate Sodium 8.6/50 MG Tablet PO SCH ×2 (11:45→20:17)
--- NOTE | 2018-05-31 15:22 | P.CONPSY ---
Provisional Diagnosis Admission Date: May 30, 2018 09:38 [place] I.: Adjustment disorder with disturbance of conduct, PTSD, MDD History of Present Illness Service: psychiatry Consult date: 05/31/18 Reason for Consult: 2nd opinion Primary Care Provider: UNKNOWN Chief Complaint: depression History of Present Illness: Pt seen and discussed with staff. Chart reviewed. He was admitted under a BA due to suicidal ideations. He was agitated with staff, screaming and cursing earlier today. He has been isolative to room. He admits to on-going suicidal ideations and depression. "I ain't right." He has been compliant with medications and denies side effects. [facility] - History History Provided By: Patient - Medical History Medical History: Medical History (Last Reviewed 05/31/18 @ 19:57 by Maryann Merino MD) Diabetes Right bundle branch block TBI (traumatic brain injury) - Surgical History Surgical History: Surgical History (Last Reviewed 05/31/18 @ 19:57 by Maryann Merino MD) History of surgery of head - Tobacco History Second Hand Smoke Exposure: No Tobacco Use In Past 30 Days: Yes (2PPD) Smoking Status: Never smoker Tobacco Type: Cigarettes - Alcohol History How Often Do You Have a Drink Containing Alcohol: 2 to 4 times a month - Substance Use History Substance History: Active Abuse - Travel History Recent Travel in the [place] Within the Last 8 Weeks: No Recent Travel Out of the Country Within the Last 8 Weeks: No - Immunization History Tetanus Immunization: Unsure Medications and Allergies Active Medications: Active Medications Al Hydrox/Mg Hydrox/Simethicone (Mag-Al Plus Susp Liq) 30 ml PO Q6H PRN PRN Reason: DYSPEPSIA Al Hydroxide/Mg Hydroxide (Milk Of Magnesia Liq) 30 ml PO Q12H PRN PRN Reason: Mild Constipation Bisacodyl (Dulcolax Supp) 10 mg RECTAL DAILY PRN PRN Reason: SEVERE CONSITIPATION Lactulose (Lactulose Liq) 30 ml PO DAILY PRN PRN Reason: SEVERE CONSITIPATION Lurasidone HCl (Latuda) 40 mg PO DAILY [facility] Last Admin: 05/31/18 08:58 Dose: 40 mg Prazosin HCl (Minipress) 2 mg PO HS [facility] Last Admin: 05/30/18 21:37 Dose: 2 mg Senna/Docusate Sodium (Sandy-Colace) 1 tab PO BID [facility] Last Admin: 05/31/18 11:45 Dose: Not Given Sennosides (Senokot) 17.2 mg PO Q12H PRN PRN Reason: Moderate Constipation Trazodone HCl (Desyrel) 100 mg PO [facility] Last Admin: 05/30/18 21:37 Dose: 100 mg Allergies Allergy/AdvReac Type Severity Reaction Status Date / Time amitriptyline Allergy Unknown Hallucinati Verified 05/29/18 17:41 ons haloperidol [From Haldol] Allergy Unknown Dry Mucus Verified 05/29/18 17:41 Membranes lactose Allergy Unknown Diarrhea Verified 05/29/18 17:41 lithium Allergy Unknown Diarrhea Verified 05/29/18 17:41 Penicillins Allergy Unknown Swelling Verified 05/29/18 17:41 of the Eye quetiapine [From Seroquel] Allergy Unknown Hallucinati Verified 05/29/18 17:41 ons Home Medications Medication Instructions Recorded Confirmed Type hydroxyzine pamoate [Vistaril] 25 mg PO PRN 05/29/18 05/29/18 History prazosin 2 mg PO 05/29/18 05/29/18 History trazodone 100 mg PO 05/29/18 05/29/18 History Exam Vital signs: Vital Signs 05/31/18 07:03 Temperature 98.4 F Pulse Rate 97 H Respiratory Rate 17 Blood Pressure 122/71 Pulse Oximetry 100 Intake & Output 05/30/18 05/31/18 05/31/18 18:59 06:59 18:59 Weight 136.98 kg Other: Weight On Admission 136.98 kg Mental Status Examination Appearance: Appropriate Consciousness: Alert Orientation: x4 Motor Activity: Normal gait Speech: Unremarkable Language: Adequate Fund of Knowledge: Adequate Attention and Concentration: Adequate Memory: Unremarkable Mood: Sad, Oppositional Affect: Irritable, Sad Thought Process & Associations: Intact Thought Content: Appropriate Hallucination Type: None Delusion Type: None Suicidal Ideation: Yes Suicidal Plan: No Suicidal Intention: No Homicidal Ideation: No Homicidal Plan: No Homicidal Intention: No Insight: Poor Judgment: Poor Assessment and Plan - Assessment (1) Acute adjustment disorder with disturbance of conduct Code(s): F43.24 - Adjustment disorder with disturbance of conduct Status: Acute - Plan Plan: I agree that pt meets criteria for involuntary hospitalization due to suicidal ideation. 2nd opinion paperwork completed Justification for Continued Inpatient Stay: impairments in safety
[2018-05-31] MEDS: traZODone 100 MG Tablet PO SCH (20:16)
[2018-05-31] MEDS: Ibuprofen 600 MG Tablet PO PRN (20:16)
[2018-06-01] MEDS: Senna/Docusate Sodium 8.6/50 MG Tablet PO SCH ×2 (08:48→21:03)
--- NOTE | 2018-06-01 11:07 | P.PNPSY ---
Subjective Remarks: Chart reviewed and discussed with nursing staff. Patient is in the common area very agitated. He is demanding to be moved to a medical floor or be discharged. He is intrusive and upsetting other patients. He states that he has an irregular heart beat and right BBB. He is requesting Cardizem. Will order an EKG and Hospitalist consult. Patient is banging on the window to the nurse's station asking to be discharged. He can be redirected but it takes several attempts. He is poor insight and does not know why he is in the hospital. Denies SI/HI. Review of Systems All other systems reviewed negative except as stated in HPI Mental Status Examination Appearance: Appropriate Consciousness: Alert Orientation: x4 Motor Activity: Normal gait Speech: Unremarkable Language: Adequate Fund of Knowledge: Adequate Attention and Concentration: Adequate Memory: Unremarkable Mood: Sad, Oppositional Affect: Irritable, Sad Thought Process & Associations: Intact Thought Content: Appropriate Hallucination Type: None Delusion Type: None Suicidal Ideation: No Suicidal Plan: No Suicidal Intention: No Homicidal Ideation: No Homicidal Plan: No Homicidal Intention: No Insight: Poor Judgment: Poor Assessment and Plan - Assessment (1) Acute adjustment disorder with disturbance of conduct Code(s): F43.24 - Adjustment disorder with disturbance of conduct Status: Acute - Plan Plan: Continue current treatment plan. Justification for Continued Inpatient Stay: Moving patient to a less restrictive environment may result in his decompensation.
[2018-06-01 11:19] LABS: Calcium 8.8 mg/dL (8.5-10.1); Carbon Dioxide 29.7 meq/L (21.0-32.0); Potassium 4.1 meq/L (3.5-5.1)
[2018-06-01 11:23] LABS: Chol/HDL Ratio 3.68 Ratio; HDL Cholesterol 34.7 mg/dL (40.0-60.0)
--- NOTE | 2018-06-01 11:44 | P.CON ---
History of Present Illness Service: [facility] Consult date: 06/01/18 Requesting Physician: Chiara Zamora Reason for Consult: Restart cardizem due to RBBB and irregular heart beat. Primary Care Provider: UNKNOWN Chief Complaint: depression History of Present Illness: 57-year-old -Polish male with past medical history significant for diabetes, right bundle branch block, TIA, PTSD and depression who presented to the emergency department on 05/29 under Huang act due to increased depression and anxiety. Patient has been admitted to inpatient psychiatry and [facility] consulted as patient reports he is on Cardizem due to a bundle branch block and "heart condition". Patient is seen and examined in his room with tech present. He reports that he is on Cardizem for his heart although is unable to specify exactly why, he is aware that he has a bundle branch block. He denies any dizziness, lightheadedness, chest pain, fevers, chills, nausea, vomiting or diarrhea. He would like to know if he will be moved to a medical floor since he needs his Cardizem. He voices no other acute concerns or complaints at the moment. Nurse reports patient had to be moved to 2700 unit as the was continuously bothering female patient is an 2600 unit. [facility] - History History Provided By: Patient - Medical History Medical History: Medical History (Last Reviewed 05/31/18 @ 19:57 by Maryann Merino MD) Diabetes Right bundle branch block TBI (traumatic brain injury) - Surgical History Surgical History: Surgical History (Last Reviewed 05/31/18 @ 19:57 by Maryann Merino MD) History of surgery of head - Tobacco History Second Hand Smoke Exposure: No Tobacco Use In Past 30 Days: Yes (2PPD) Smoking Status: Never smoker Tobacco Type: Cigarettes - Alcohol History How Often Do You Have a Drink Containing Alcohol: 2 to 4 times a month - Substance Use History Substance History: Active Abuse - Travel History Recent Travel in the [place] Within the Last 8 Weeks: No Recent Travel Out of the Country Within the Last 8 Weeks: No - Immunization History Tetanus Immunization: Unsure Medications and Allergies Active Medications: Active Medications Al Hydrox/Mg Hydrox/Simethicone (Mag-Al Plus Susp Liq) 30 ml PO Q6H PRN PRN Reason: DYSPEPSIA Al Hydroxide/Mg Hydroxide (Milk Of Magnesia Liq) 30 ml PO Q12H PRN PRN Reason: Mild Constipation Bisacodyl (Dulcolax Supp) 10 mg RECTAL DAILY PRN PRN Reason: SEVERE CONSITIPATION Ibuprofen (Motrin) 600 mg PO Q6H PRN PRN Reason: PAIN 1-10 Last Admin: 05/31/18 20:16 Dose: 600 mg Lactulose (Lactulose Liq) 30 ml PO DAILY PRN PRN Reason: SEVERE CONSITIPATION Lurasidone HCl (Latuda) 40 mg PO DAILY [facility] Last Admin: 06/01/18 08:48 Dose: 40 mg Prazosin HCl (Minipress) 2 mg PO HS [facility] Last Admin: 05/31/18 20:17 Dose: Not Given Senna/Docusate Sodium (Sandy-Colace) 1 tab PO BID [facility] Last Admin: 06/01/18 08:48 Dose: 1 tab Sennosides (Senokot) 17.2 mg PO Q12H PRN PRN Reason: Moderate Constipation Trazodone HCl (Desyrel) 100 mg PO [facility] Last Admin: 05/31/18 20:16 Dose: 100 mg Allergies Allergy/AdvReac Type Severity Reaction Status Date / Time amitriptyline Allergy Unknown Hallucinati Verified 05/29/18 17:41 ons haloperidol [From Haldol] Allergy Unknown Dry Mucus Verified 05/29/18 17:41 Membranes lactose Allergy Unknown Diarrhea Verified 05/29/18 17:41 lithium Allergy Unknown Diarrhea Verified 05/29/18 17:41 Penicillins Allergy Unknown Swelling Verified 05/29/18 17:41 of the Eye quetiapine [From Seroquel] Allergy Unknown Hallucinati Verified 05/29/18 17:41 ons Home Medications Medication Instructions Recorded Confirmed Type hydroxyzine pamoate [Vistaril] 25 mg PO HS PRN 05/29/18 05/29/18 History prazosin 2 mg PO HS 05/29/18 05/29/18 History trazodone 100 mg PO HS 05/29/18 05/29/18 History Physical Exam Vital signs: Vital Signs 05/31/18 20:00 06/01/18 05:52 Temperature 98 F 97.2 F L Pulse Rate 77 84 Respiratory Rate 17 16 Blood Pressure 132/78 128/74 Pulse Oximetry 98 95 Narrative: GENERAL: Well-developed, obese -Polish male in no acute distress. SKIN: Warm and dry. HEAD: Atraumatic. Normocephalic. EYES: Pupils equal and round. No scleral icterus. No injection or drainage. ENT: No nasal bleeding or discharge. Mucous membranes pink and moist. NECK: Trachea midline. No JVD. CARDIOVASCULAR: Regular rate and rhythm. RESPIRATORY: No accessory muscle use. Clear to auscultation. Breath sounds equal bilaterally. GASTROINTESTINAL: Abdomen soft, non-tender, nondistended. MUSCULOSKELETAL: Extremities without clubbing, cyanosis, or edema. No obvious deformities. NEUROLOGICAL: Awake and alert. No obvious cranial nerve deficits. Motor grossly within normal limits. Five out of 5 muscle strength in the arms and legs. Normal speech. PSYCHIATRIC: Appropriate mood and affect; insight and judgment normal. Assessment and Plan - Plan 57-year-old -Polish male with past medical history significant for diabetes, right bundle branch block, TIA, PTSD and depression who presented to the emergency department on 05/29 under Huang act due to increased depression and anxiety. Patient has been admitted to inpatient psychiatry and [facility] consulted as patient reports he is on Cardizem due to a bundle branch block and "heart condition". PTSD/depression -Treatment plan per psychiatry, greatly appreciated Bundle branch block -EKG reviewed, SR with right BBB - HR and BP stable so far, at this moment will hold off on resuming Cardizem. - Call placed to [facility], but they are closed today. [facility] or [facility] facility tomorrow to verify why he is on Cardizem Prediabetes mellitus - Hemoglobin A1C 1.2 -Dietary and lifestyle changes recommended Cocaine use -Cessation encouraged DVT prophylaxis-ambulation Thank you for this consultation, will continue to follow along. Likely sign off tomorrow. Discussed Condition With: Patient, RN and DESMOND Guadarrama
[2018-06-01] MEDS: Ibuprofen 600 MG Tablet PO PRN (13:59)
[2018-06-01 14:24] LABS: Hemoglobin A1c 6.2 % (4.3-6.0)
[2018-06-01] MEDS: traZODone 100 MG Tablet PO SCH (21:03)
[2018-06-02] MEDS: Ibuprofen 600 MG Tablet PO PRN (03:32)
[2018-06-02 06:33] VITALS: BP 127/83; PULSE 92; RESP 17; TEMP 98; O2SAT 100
[2018-06-02] MEDS: Senna/Docusate Sodium 8.6/50 MG Tablet PO SCH (09:46)
--- NOTE | 2018-06-02 11:43 | P.PNPSY ---
Subjective Remarks: The patient was seen today for psychiatric reevaluation along with nursing charge Beth. The patient is found in the recreational area of the unit, he is calm, cooperative, in a good spirit. The patient reports that he wants to be transfer to the [facility] in [place] to continue his psychiatric treatment. He says that he feels much better now, but he has been taking his medications, no significant side effects so far, he does not feel comfortable in this unit. He says that some of the patients "are not been nice with me and I do not feel comfortable here anymore". The patient denies suicidal and homicidal ideation, he denies visual and auditory hallucinations. He also is requesting to be restarted in his Cardizem, this medication was confirmed in his pharmacy, will be restarted today. As per nursing charge the patient has been intrusive, demanding at times, this morning he had an argument with 1 of the other patients , but he responded to verbal de-escalation Mental Status Examination Appearance: Appropriate Consciousness: Alert Orientation: x4 Motor Activity: Normal gait Speech: Unremarkable Language: Adequate Fund of Knowledge: Adequate Attention and Concentration: Adequate Memory: Unremarkable Mood: Sad, Oppositional Affect: Irritable, Sad Thought Process & Associations: Intact Thought Content: Appropriate Hallucination Type: None Delusion Type: None Suicidal Ideation: No Suicidal Plan: No Suicidal Intention: No Homicidal Ideation: No Homicidal Plan: No Homicidal Intention: No Insight: Poor Judgment: Poor Assessment and Plan - Assessment (1) Acute adjustment disorder with disturbance of conduct Code(s): F43.24 - Adjustment disorder with disturbance of conduct Status: Acute - Plan Plan: Patient continues to be quite intrusive in the unit, demanding, with frequent splitting amount of staff, with episodic aggressiveness, but compliant with medications, no significant side effects. restart Cardizem 120 mg. Continue current psychotropic regimen. Justification for Continued Inpatient Stay: Patient has an increased risk of danger to self and others, he needs to continue psychiatric hospitalization for stabilization
--- NOTE | 2018-06-02 12:38 | P.DSPSY ---
Psychiatry Discharge Summary Inpatient Psychiatric care?: Yes Advance Directives: No Mental Health Advance Directive: No Health Care Proxy: No - Admission Admission Date: May 30, 2018 09:38 - Admission Diagnosis (1) Acute adjustment disorder with disturbance of conduct Code(s): F43.24 - Adjustment disorder with disturbance of conduct Brief History: The patient is a 57-year-old -Swedish man, domiciled in [facility] [place] [facility], , single, unemployed, , 100% service-connected, with a psychiatric history of PTSD, major depressive disorder, previous psychiatric hospitalizations, he is known by the department, he has several ER visits to [place], documentation review, psychiatric outpatient care in the [place], he is on Latuda 80 mg, trazodone 100 mg, Celexa 20 mg, Valium 10 mg at bedtime medical history hypertension, TBI, presents emergency department under Huang act by PD. Patient states that he initially had tried to call the ambulance to take him to the [place]. He states that he was feeling increasingly depressed and anxious regarding his roommates taking advantage of him those are people that were just released from half-way. He also says that he does not feel that he is getting the need that he deserves, because I am the black person. Patient reports that he does not want to continue living in [place], he wants to go back to [place]. He reports that he has been feeling hopeless, helpless, worthless, difficulty sleeping at night, very concerned and with anxiety Attacks per he states that he has contemplated suicide but has no current plan. He also states that he has been suffering from chronic right knee pain. He has been seen at the [place] multiple times and has had an x-ray as well as an ultrasound of his right leg. He is currently taking ibuprofen for his pain. According to the Huang act the patient had refused transport by PD initially before he was placed under a Huang act. The patient stated that he only wanted to come by ambulance. When the patient was here in the ER he was seen by the psych nurse practitioner who initiated restraints and medicated him with Geodon 10 mg and Ativan 1 mg the patient here this evening denies any active plan on self-harm. No homicidal ideation. The patient is fully oriented x3, no attention deficit, no fluctuation of consciousness. On the ER the patient has been very disruptive, oddly related, intrusive, asking the same questions over and over. Patient has a very kind of concrete thinking and at times made the questions over and over. He also has showed he does not respond very well to white female become quite paranoid. PPHx: psychiatric history of PTSD, major depressive disorder, previous psychiatric hospitalizations, he is known by the department, he has several ER visits to [place], documentation review, psychiatric outpatient care in the [place], he is on Latuda 80 mg, trazodone 100 mg, Celexa 20 mg, Valium 10 mg at bedtime PMHx: history hypertension, TBI Substance Hx: He denies alcohol and illegal Social Hx: Patient was born and raised in [place], he lives in [facility] in [facility] [place], his highest level of education is a bachelor degree Tobacco Use In Past 30 Days: Yes (2PPD) How Often Do You Have a Drink Containing Alcohol: 2 to 4 times a month Hospital Course: 12/29/2017 Pt seen and discussed with staff. Chart reviewed. He was admitted under a BA due to suicidal ideations. He was agitated with staff, screaming and cursing earlier today. He has been isolative to room. He admits to on-going suicidal ideations and depression. "I ain't right." He has been compliant with medications and denies side effects. 12/31/2011 Chart reviewed and discussed with nursing staff. Patient is in the common area very agitated. He is demanding to be moved to a medical floor or be discharged. He is intrusive and upsetting other patients. He states that he has an irregular heart beat and right BBB. He is requesting Cardizem. Will order an EKG and Hospitalist consult. Patient is banging on the window to the nurse's station asking to be discharged. He can be redirected but it takes several attempts. He is poor insight and does not know why he is in the hospital. Denies SI/HI. The patient was seen today for psychiatric reevaluation along with nursing charge Beth. The patient is found in the recreational area of the unit, he is calm, cooperative, in a good spirit. The patient reports that he wants to be transfer to the [place] to continue his psychiatric treatment. He says that he feels much better now, but he has been taking his medications, no significant side effects so far, he does not feel comfortable in this unit. He says that some of the patients "are not been nice with me and I do not feel comfortable here anymore". The patient denies suicidal and homicidal ideation, he denies visual and auditory hallucinations. He also is requesting to be restarted in his Cardizem, this medication was confirmed in his pharmacy, will be restarted today. As per nursing charge the patient has been intrusive, demanding at times, this morning he had an argument with 1 of the other patients, but he responded to verbal de-escalation - Discharge Discharge Date: 06/02/18 - Discharge Diagnosis (1) Acute adjustment disorder with disturbance of conduct Code(s): F43.24 - Adjustment disorder with disturbance of conduct Status: Acute Discharge Disposition: Home - Discharge Time > 30 minutes Mental Status Examination Appearance: Appropriate Consciousness: Alert Orientation: x4 Motor Activity: Normal gait Speech: Unremarkable Language: Adequate Fund of Knowledge: Adequate Attention and Concentration: Adequate Memory: Unremarkable Mood: Sad, Oppositional Affect: Irritable, Sad Thought Process & Associations: Intact Thought Content: Appropriate Hallucination Type: None Delusion Type: None Suicidal Ideation: No Suicidal Plan: No Suicidal Intention: No Homicidal Ideation: No Homicidal Plan: No Homicidal Intention: No Insight: Fair Judgment: Impulsive Discharge/Advance Care Plan - Results Vital Signs: Last Vital Signs Temp 98 F 06/02/18 06:00 Pulse 92 H 06/02/18 06:00 Resp 17 06/02/18 06:00 BP 127/83 06/02/18 06:00 Pulse Ox 100 06/02/18 06:00 Lab Results: Abnormal Lab Results 06/01/18 10:35 Hemoglobin A1c 6.2 H Laboratory Results Hemoglobin A1c 6.2 % (4.3-6.0) H 06/01/18 10:35 Triglycerides 160 mg/dL (42-150) H 06/01/18 10:35 Cholesterol 128 mg/dL (120-200) 06/01/18 10:35 LDL Cholesterol, Calc 61 mg/dL (0-99) 06/01/18 10:35 HDL Cholesterol 34.7 mg/dL (40.0-60.0) L 06/01/18 10:35 TSH 1.020 uIU/mL (0.358-3.740) 05/29/18 17:48 Pending Results: None - Medications Number of antipsychotic medications at discharge: 1 - Discharge Care Plan Goals to Promote Your Health: * To prevent worsening of your condition and complications * To maintain your health at the optimal level Directions to Meet Your Goals: Take your medications as prescribed Follow your dietary instruction Follow activity as directed Keep your appointments as scheduled Take your immunizations and boosters as scheduled If your symptoms worsen call your PCP, if no PCP go to Urgent Care Center or Emergency Room For 04/03 questions related to your inpatient stay or results of tests pending at discharge, please contact Dr. Fab De La O MD at [phone] Smoking is Dangerous to Your Health. Avoid second hand smoking
[2018-06-02] MEDS ORDERED: dilTIAZem 60 MG Tablet PO SCH ×2 (13:00)
--- NOTE | 2018-06-02 16:51 | ECG ---
Date Performed: 06/01/2018 Time Performed: 13:48:01 PTAGE: 57 years EKG: Sinus rhythm INDETERMINATE AXIS RIGHT BUNDLE BRANCH BLOCK Inferolateral ST elevation taht is most likely secondar y to the Right bundle branch block ABNORMAL ECG NO PREVIOUS TRACING No previous tracing is available for comparison DOCTOR: Inessa Desir Interpretating Date/Time 06/02/2018 16:43:30
== END 2018-06-02 13:40 ==
LOC: NEPJ 17:24 → NEDA 05-30 09:38 → H270 05-30 11:17 → H260 05-31 18:52 → H270 06-01 04:28
PROVIDERS: ADMIT Psychiatry & Neurology Psychiatry; ATTEND Psychiatry & Neurology Psychiatry